=== PATIENT | female | born 1975 | race Caucasian/White ===

== ENCOUNTER → 2020-09-14 | Outpatient (CLI) | payer OTHER ==
[~2020-09-14] MED LIST: ASPI-630 PO; CETI10TA74 PO; DOXY25TA49 PO; PRED5DRO16 EACHEYE; SERT100T PO; TOPI25TA7 PO
[2020-09-14 14:14] LABS: BASO % 1 % (0-3); EOS # 0.1 x10^3/uL (0.0-0.7); EOS % 2 % (0-3); HEMATOCRIT 38.9 % (36.0-47.0); HEMOGLOBIN 13.4 g/dL (12.0-15.5); LYMPH % 26 % (24-48); MEAN CORPUSCULAR HEMOGLOBIN 30 pg (25-35); MEAN CORPUSCULAR HGB CONC 34 g/dL (31-37); MEAN CORPUSCULAR VOLUME 88 fL (79-100); MONO # 0.3 x10^3/uL (0.0-1.1); MONO % 7 % (0-9); NEUT # 2.5 x10^3/uL (1.8-7.7); NEUT % 65 % (31-73); PLATELET COUNT 115 x10^3/uL (140-400); RED BLOOD COUNT 4.45 x10^6/uL (3.50-5.40); RED CELL DISTRIBUTION WIDTH 13.5 % (11.5-14.5); WHITE BLOOD COUNT 3.8 x10^3/uL (4.0-11.0)
[2020-09-14 14:27] LABS: BILIRUBIN,URINE NEGATIVE (NEG); CLARITY,URINE CLEAR; COLOR,URINE YELLOW; NITRITE,URINE NEGATIVE (NEG); PH,URINE 5.5 (<5.0-8.0); PROTEIN,URINE NEGATIVE (NEG-TRACE); UROBILINOGEN,URINE 0.2 mg/dL (0.2 mg/dL)
[2020-09-14 14:29] LABS: ALBUMIN 3.8 g/dL (3.4-5.0); ALBUMIN/GLOBULIN RATIO 1.2 (1.0-1.7); CALCIUM 9.2 mg/dL (8.5-10.1); CREATININE 1.1 mg/dL (0.6-1.0); GFR 53.5; POTASSIUM 3.9 mmol/L (3.5-5.1); TOTAL BILIRUBIN 0.5 mg/dL (0.2-1.0); TOTAL PROTEIN 7.1 g/dL (6.4-8.2)
[2020-09-14 14:43] LABS: BACTERIA,URINE FEW /HPF (0-FEW); RBC,URINE 0 /HPF (0-2)
== END ==
LOC: SURGPAT 13:41
PROVIDERS: ATTEND Obstetrics & Gynecology
DX: Z01.818 Encounter for other preprocedural examination (principal); R32 Unspecified urinary incontinence; R11.10 Vomiting, unspecified
CPT/HCPCS: 36415; 80053; 81001; 82670; 83001; 85025; 87086

== ENCOUNTER 2020-09-20 07:03 | Day surgery (SDC) | payer OTHER ==
[2020-09-14 14:12] VITALS: BP 106/59
[~2020-09-20] VITALS: Ht 160 cm; Wt 71.5 kg
[2020-09-20] MEDS ORDERED: ONDANSETRON PF 4 MG/2 ML VIAL. ONE (07:08)
[2020-09-20] MEDS ORDERED: LIDOCAINE 2% PF 5 ML VIAL. ONE (07:08)
[2020-09-20] MEDS ORDERED: PROPOFOL 10 MG/ML (20ML) VIAL. IV ONE (07:08)
[2020-09-20] MEDS ORDERED: DEXAMETHASONE SOD PHOS 4 MG/ML VIAL ONE (07:08)
[2020-09-20 07:40] VITALS: BP 118/57
[2020-09-20] MEDS ORDERED: BUPIVACAINE-EPI 0.25% 30 ML VIAL KIT. ONE ×2 (07:44→07:45)
[2020-09-20] MEDS ORDERED: fentaNYL PF VIAL 100 MCG/2 ML VIAL ONE ×2 (07:50→10:09)
[2020-09-20] MEDS ORDERED: MIDAZOLAM HCL/PF 2 MG/2 ML VIAL. ONE (07:50)
[2020-09-20] MEDS ORDERED: FAMOTIDINE 20 MG/2 ML VIAL ONE (07:59)
[2020-09-20] MEDS ORDERED: IV RINGERS,LACTATED 1000ML 1,000 ML IV SCH ×2 (08:00→09:45)
[2020-09-20] MEDS ORDERED: SUCCINYLCHOLINE 200 MG/10 ML VIAL. ONE (08:06)
[2020-09-20] MEDS ORDERED: ROCURONIUM 50 MG/5 ML VIAL. ONE (08:07)
[2020-09-20] MEDS ORDERED: PHENYLEPHRINE in 0.9% NACL PF 1 MG/10 ML SYRINGE. IV ONE (08:15)
[2020-09-20] MEDS ORDERED: KETAMINE HCL IN NACL, ISO-OSM 50 MG/5 ML SYRINGE ONE (08:33)
[2020-09-20] MEDS ORDERED: NEOSTIGMINE METHYLSULFATE 5 MG/5 ML SYRINGE. ONE (08:44)
[2020-09-20] MEDS ORDERED: GLYCOPYRROLATE 1 MG/5 ML VIAL. ONE (08:44)
[2020-09-20] MEDS ORDERED: ESTROGENS, CONJ VAGINAL CREAM 30GM TUBE. ONE (08:56)
[2020-09-20] MEDS ORDERED: INDIGOTINDISULFONATE SODIUM 40 MG/5 ML AMPUL. ONE (08:56)
[2020-09-20] MEDS ORDERED: KETOROLAC 30 MG/ML VIAL. ONE (09:22)
[2020-09-20] MEDS ORDERED: SEVOFLURANE 61 TO 120 MINUTES. IH ONE (09:23)
[2020-09-20] MEDS ORDERED: fentaNYL PF VIAL 100 MCG/2 ML VIAL IVP PRN (09:45)
[2020-09-20] MEDS ORDERED: HYDROmorphone 2 MG/ML VIAL IVP PRN (09:45)
[2020-09-20] MEDS ORDERED: PROCHLORPERAZINE 10 MG/2 ML VIAL. IVP PRN (09:45)
--- NOTE | 2020-09-20 09:54 | PDOC ---
BRIEF OPERATIVE NOTE Date: Sep 20, 2020 Pre-Op Diagnosis mixed urinary incontinence, uretheral hypermobility, 2 degree cystocele Post-Op Diagnosis same Procedure Performed anterior repair, TVT abbrevo with cystoscopy Surgeon Cartridge Belt Puncher NEGRO Alas Anesthesiologist Dr. Bowen Anesthesia Type: General Blood Loss 25cc IV Fluid 1100cc Urine Output 350cc clear via guzmán Specimens Obtained anterior vaginal mucosa (not sent) Findings 2 degree cystocele, uretheral hypermobility, known mixed urinary incontinence Complications none Operative Note [id number] OPAL WILSON MD Sep 20, 2020 09:54
[2020-09-20] MEDS ORDERED: MAG HYDROX/ALUMINUM HYD/SIMETH 30 ML ORAL.SUSP PO PRN (10:00)
[2020-09-20] MEDS ORDERED: SIMETHICONE 80 MG TAB.CHEW PO PRN (10:00)
[2020-09-20] MEDS ORDERED: NALOXONE 0.4 MG/ML VIAL. IV PRN (10:00)
[2020-09-20] MEDS ORDERED: 0.9 % SODIUM CHLORIDE 10 ML DISP.SYRIN. IV PRN (10:00)
[2020-09-20] MEDS ORDERED: CALCIUM CARBONATE 500 MG TAB.CHEW PO PRN (10:00)
[2020-09-20] MEDS ORDERED: diphenhydrAMINE 50 MG/ML VIAL IV PRN (10:00)
[2020-09-20] MEDS ORDERED: diphenhydrAMINE HCL 25 MG CAPSULE PO PRN (10:00)
[2020-09-20] MEDS ORDERED: HYDROcodone/APAP 5/325MG 1 TAB TABLET PO PRN (10:00)
[2020-09-20] MEDS: fentaNYL PF VIAL 100 MCG/2 ML VIAL IVP PRN ×2 (10:12→10:31)
[2020-09-20] MEDS ORDERED: HYDR-2759 PO (10:24)
[2020-09-20] MEDS ORDERED: MORPHINE SULFATE 2 MG/ML VIAL. ONE (10:41)
[2020-09-20] MEDS: MORPHINE SULFATE 2 MG/ML VIAL. IVP PRN ×2 (10:44→10:51)
[2020-09-20] MEDS ORDERED: HYDROcodone/APAP 5/325MG 1 TAB TABLET PO ONE (10:45)
--- NOTE | 2020-09-20 10:57 | OP ---
DATE OF SURGERY: 09/20/2020 PREOPERATIVE DIAGNOSES: Second-degree cystocele, urethral hypermobility and mixed urinary incontinence. POSTOPERATIVE DIAGNOSES: Second-degree cystocele, urethral hypermobility and mixed urinary incontinence. PROCEDURE: Anterior repair, a TVT Abbrevo with cystoscopy. SURGEON: Delaney Wilson MD. DIRECTOR OF DISTANCE LEARNING: Marcus Fuchs. ANESTHESIOLOGIST: Golden Bowen MD. ANESTHESIA: General. BLOOD LOSS: 25 mL. URINE OUTPUT: 350 mL clear via Pinon catheter. IV FLUIDS: 1100 mL of crystalloid. SPECIMENS: Just anterior vaginal mucosa, but it was not sent for pathology. FINDINGS: A second-degree cystocele, urethral hypermobility and a known prior mixed urinary incontinence from urodynamic bladder testing. COMPLICATIONS: None. DESCRIPTION OF PROCEDURE: This patient was taken to the operating room where general anesthesia was placed. The patient was placed in dorsal lithotomy position in Brandon stirrups. The patient's vagina was prepped and draped in the normal sterile fashion and a Pinon catheter had been inserted under sterile technique. Upon my arrival, once everyone agreed on the patient, the site, the procedure and the antibiotics, after the timeout was performed, the procedure was initiated. A weighted speculum was placed in the patient's vagina. Allises were placed just above the cervical opening on the anterior bladder reflection, on the anterior cervix. Almost 80 mL of a dilute solution of 3 parts injectable saline to 1 part 0.25% Marcaine with epinephrine, so 50 and 200 was used to inject the anterior defect out laterally and suburethrally where the sling would go. Once this was done, a small vertical incision was made with the scalpel and Allises were placed on either side. The Metzenbaum scissors were used to open up the anterior defect, placing Allises along the way, stopping 1-2 cm below the urethral opening where the rugae started, to have a separate opening for the sling. Three or four Allises fanned out on both sides. The Metzenbaums were used to sharply excise the tissue from the edges and then an open Ray-Rex 4 x 4 was used to gently push up and reduce the bladder defect on both sides. Once it reduced nicely, 4 or 5 interrupted 2-0 Vicryl sutures were used to reduce the defect and tied in using the end of the curved Kassandra to push it up and bringing them together during tying them in a reverse order. The sutures were placed and tagged and then going back and tying them in order. An imbricating stitch in the middle was placed to make sure it was strong. A little bit was trimmed off the right side and just a tiny bit on the left side in the middle and then it was closed with a running 2-0 Vicryl in a running locked fashion, closing the defect back. It reduced great. There was no active bleeding and it closed well. At this point, an Allis was placed under the urethra. A small 1 cm vertical incision was made. Metzenbaum scissors were used to dissect out laterally to the obturator foramen on both sides, just staying right under the vaginal mucosa and kind of opening it and going out and then opening in a blunt kind of dissection fashion. The wing guide applicator was easily placed in on both sides, making sure we were in the right spot, when I had done the drawing first. I jackeline a line at the urethra, then went 2 cm up and then 2 cm out from the groin, the lateral fold, to know the expected location of the sling, so placing the wing guide applicator in the patient's right side first, going through and around the obturator foramen, it came out right at the expected location on the lateral groin, making a small dawn in that with a 15 blade, popping it through, grabbing it with curved Kassandra, removing the wing guide and removing the sling from the handheld curved device, pulling it through. Doing the exact same thing on the left side, placing the wing guide applicator and what had been dissected out suburethrally to the obturator, making sure the sling was straight placing the handheld device in through there, taking it around the obturator and it came out at the expected location, again making a small dawn in the skin, popping it through, grabbing it with a curved Kassandra, taking out the wing guide applicator and removing the sling from the handheld curved device, pulling it through, but not tight. There was no buttonholing vaginally, everything looked good. At this point, the Pinon bulb was deflated and the catheter was removed. A cystoscopy was performed. Over 400-500 mL was placed in the bladder. The bladder bulb was seen and there was no blood. There was no evidence of any trauma to the bladder. There was no sling. Everything looked good. Both ureteral openings were identified and seen. So, at this point, it was ended. A little bit of the urine was drained, but a lot was left, so she could void from the recovery room. Once it was done, a #7 Hegar dilator was used to tighten the sling up around it suburethrally. It was placed between the urethra and the sling. The plastic sheaths were cut at the end, the white guide applicators and the plastic was removed. Prolene sutures were used to make sure there was snug over the sling and that the Prolene marker was in the middle suburethrally and it was, so the Prolene sutures were removed and the Prolene was clipped in the midline, also under the suburethral area and then the sling was removed. FloSeal was placed over the sling on both sides. A 2-layer closure was performed over the sling, first with Monocryl in a subcutaneous and then the 2-0 Vicryl over the top. Once this was done, the lateral groins were closed with Dermabond. This concluded procedure. She was awakened from anesthesia and brought to recovery room in stable condition. REMI BARAJAS: Aris TID: [id number]
[2020-09-20] MEDS ORDERED: HYDROmorphone 2 MG/ML VIAL ONE (11:02)
[2020-09-20 11:25] VITALS: BP 101/60
== END 2020-09-20 11:50 | disposition home or self-care (01) ==
LOC: SURG 07:03 → EDUNIT# 08:30 → SURG 11:50
PROVIDERS: ATTEND Obstetrics & Gynecology
DX: N39.46 Mixed incontinence (principal); N36.41 Hypermobility of urethra; N81.10 Cystocele, unspecified; K21.9 Gastro-esophageal reflux disease without esophagitis; Z79.82 Long term (current) use of aspirin; Z79.899 Other long term (current) drug therapy; Z72.89 Other problems related to lifestyle; Z88.8 Allergy status to other drugs, medicaments and biological substances
CPT/HCPCS: 36415; 57240; 81025; 86850; 86900; 86901; A4314; A4930; C1771; J0330; J0690; J1100; J1170; J1885; J2270; J2370; J2405; J2704; J2710; J3010; J3490; J2250